=== PATIENT | male | born 1965 | race Caucasian/White ===

== ENCOUNTER → 2021-02-15 | Outpatient (CLI) | payer OTHER ==
[2021-02-15 12:35] LABS: T4, Free (Free Thyroxine) 0.83 ng/dL (0.78-2.19)
--- NOTE | 2021-02-15 15:16 | FL ---
EXAMINATION TYPE: FL barium swallow DATE OF EXAM: 02/15/2021 CLINICAL INDICATION: 55-year-old male R13.10, dysphagia. R2 2.1. R0.89. Sensation of throat tightness and intermittent feeling of something stuck in his throat for the last 2-3 months. COMPARISON: None Total Fluoroscopy Time: 2 minutes 8 seconds 56 images obtained. FINDINGS: The swallowing mechanism is normal and hypopharyngeal anatomy is preserved. The cervical and thoracic portions have a normal course and caliber. Mild tertiary peristaltic waves are demonstrated. The mucosa is normal and no persistent filling defect is encountered. There is a small sliding hiatal hernia and severe gastroesophageal reflux which inconsistently occurr ed upon Valsalva maneuver when the patient is supine IMPRESSION: Small sliding hiatal hernia and inconsistent severe gastroesophageal reflux to the thoracic inlet.
== END | disposition home or self-care (01) ==
LOC: RADUSWWP 10:18
PROVIDERS: ATTEND Otolaryngology
DX: K21.9 Gastro-esophageal reflux disease without esophagitis (principal); K44.9 Diaphragmatic hernia without obstruction or gangrene
CPT/HCPCS: 74220; 84439; 84443; 86376

== ENCOUNTER → 2021-02-23 | Outpatient (CLI) | payer OTHER ==
--- NOTE | 2021-02-23 15:56 | CT ---
EXAMINATION TYPE: CT soft tissue neck w con DATE OF EXAM: 02/23/2021 COMPARISON: None HISTORY: Throat tightness, dysphagia CT DLP: 811 mGycm CONTRAST: Patient injected with 100 mL of Isovue 300. TECHNIQUE: Axial images at 3 mm thick sections. Reconstructed images in the coronal plane and sagitt al plane are reviewed. FINDINGS: Limited CT sections are obtained the lung apices. The lung apices appear clear. CT neck: The torus tubarius and fossa of Rosenmuller are normal. School Custodian spaces are normal. Para nasal sinuses and mastoid air cells are clear. Parotid glands appear normal and symmetrical. Submandibular glands, are normal. Parapharyngeal spac es are normal. No suspicious adenopathy is evident. The hypopharynx appears within normal limits. There may be some asymmetry with more fullness on the l eft compared to the right. Underlying discrete mass however is not evident. Vocal cord level appear symmetrical. Thyroid as visualized is normal. Osseous structures are normal. IMPRESSIONS: 1. No suspicious abnormality soft tissue neck to account for patient's throat tightness dysphasia.
== END | disposition home or self-care (01) ==
LOC: RADCTMAIN 15:08
PROVIDERS: ATTEND Otolaryngology
DX: R13.10 Dysphagia, unspecified (principal)
CPT/HCPCS: 70491; Q9967